=== PATIENT | male | born 1975 | race African-American/Black ===

== ENCOUNTER 2017-09-21 11:35 | Emergency (ER) | payer MEDICAID ==
[~2017-09-21] VITALS: Ht 177.8 cm; Wt 122.5 kg
[2017-09-21 11:38] VITALS: Ht 177.8 cm; Wt 122.5 kg
[2017-09-21 13:43] VITALS: BP 138/89
== END 2017-09-21 14:30 | disposition home or self-care (01) ==
LOC: ED 11:35
DX: S93.602A Unspecified sprain of left foot, initial encounter (principal); W20.8XXA Other cause of strike by thrown, projected or falling object, initial encounter; Y93.23 Activity, snow (alpine) (downhill) skiing, snowboarding, sledding, tobogganing and snow tubing; Y92.89 Other specified places as the place of occurrence of the external cause; Y99.8 Other external cause status
CPT/HCPCS: Q0092